=== PATIENT | male | born 1965 | race Two or more races ===

== ENCOUNTER 2024-02-20 16:04 | Inpatient (IN) | payer OTHER ==
[2024-02-20] MEDS ORDERED: NITROGLYCERIN SUBLINGUAL 1/150 0.4 MG TAB ONE ×2 (16:13→16:17)
[2024-02-20] MEDS ORDERED: NITROGLYCERIN 2% OINTMENT - 1GM PACKET TD ONE (16:13)
[2024-02-20] MEDS ORDERED: FUROSEMIDE 40 MG/4 ML INJECTABLE VIAL ONE (16:15)
[2024-02-20] MEDS ORDERED: NITROGLYCERIN 25MG/D5W 250ML 25 MG/250 ML ML IVPB ONE (16:24)
[2024-02-20] MEDS: NITROGLYCERIN SUBLINGUAL 1/150 0.4 MG TAB SL ONE ×3 (16:30→20:41)
[2024-02-20 16:48] LABS: BASO % 0.7 % (0-2.0); EOS % 1.5 % (0-4.5); HEMATOCRIT 44.8 % (35.4-49); HEMOGLOBIN 14.6 GM/dL (11.7-16.9); LYMPH % 27.9 % (8-40); MCH 27.6 pg (25.7-33.7); MCHC 32.5 g/dl (32.0-35.9); MEAN CELL VOLUME 84.9 fl (80-96); MEAN PLT VOLUME 7.6 fl (7.5-11.1); MONO % 7.8 % (3.8-10.2); NEUT % 62.1 % (42.8-82.8); PLATELET COUNT 345 10^3/uL (134-434); RBC 5.28 M/mm3 (4.00-5.60); RDW 16.1 % (11.9-15.9); WHITE BLOOD COUNT 9.8 K/mm3 (4.0-10.0)
[2024-02-20 16:49] LABS: VENOUS BASE EXCESS -0.4 mmol/L (-2-2); VENOUS O2 SATURATION 73.7 % (70-80); VENOUS PCO2 66.1 mmHg (38-52); VENOUS PH 7.254 (7.310-7.410)
[2024-02-20 16:54] LABS: INR 1.07 (0.83-1.09); PROTHROMBIN TIME (PATIENT) 12.3 SEC (9.7-13.0)
[2024-02-20 16:57] LABS: ACTIVATED PTT 33.5 SECONDS (25.2-36.5)
[2024-02-20 17:06] LABS: CHLORIDE 106 mmol/L (98-107); SODIUM 138 mmol/L (136-145)
[2024-02-20 17:08] LABS: ALBUMIN 3.9 g/dl (3.4-5.0); BLOOD UREA NITROGEN 15.2 mg/dL (7-18); CALCIUM 9.6 mg/dL (8.5-10.1); CO2 28 mmol/L (21-32); GLUCOSE,RANDOM 125 mg/dL (74-106); MAGNESIUM 2.2 mg/dL (1.8-2.4)
[2024-02-20 17:11] LABS: SGOT/AST 104 U/L (15-37)
[2024-02-20 17:12] LABS: PHOSPHOROUS 3.9 mg/dL (2.5-4.9)
[2024-02-20 17:13] LABS: BILIRUBIN,TOTAL 0.9 mg/dL (0.2-1); TOT PROT 8.8 g/dl (6.4-8.2)
[2024-02-20 17:14] LABS: ALK PHOS 80 U/L (45-117)
[2024-02-20 17:16] LABS: N-TERMINAL BNP 1267.1 pg/ml (5-125)
[2024-02-20 17:19] LABS: ANION GAP 4 mmol/L (4-13); LACTIC ACID 2.6 mmol/L (0.4-2.0); POTASSIUM 6.7 mmol/L (3.5-5.1); SGPT/ALT 54 U/L (13-61)
[2024-02-20] MEDS: ALBUTEROL SO4 2.5/IPRATROPIUM 0.5 INH SOL 3 ML VIAL.NEB. NEB SCH (17:49)
[2024-02-20] MEDS: NITROGLYCERIN 25MG/D5W 250ML 25 MG/250 ML ML IVPB SCH (17:49)
[2024-02-20 18:56] LABS: ARTERIAL BLD GAS O2 SATURATION 97.3 % (95-98); ARTERIAL BLOOD GAS BASE EXCESS 1.8 mmol/L (-2-2); ARTERIAL BLOOD GAS PO2 100.6 mmHg (80-100); ARTERIAL BLOOD GAS pH 7.362 (7.350-7.450)
[2024-02-20 18:57] LABS: ALLENS TEST POSITIVE
[2024-02-20 18:57] LABS: POTASSIUM 3.3 mmol/L (3.5-5.1)
[2024-02-20 18:58] LABS: VENT MODE S/T; VENT RATE 12
[2024-02-20 18:59] LABS: CALCIUM 9.1 mg/dL (8.5-10.1)
[2024-02-20 19:00] LABS: BLOOD UREA NITROGEN 15.3 mg/dL (7-18)
[2024-02-20 19:04] LABS: CREATININE 0.8 mg/dL (0.55-1.3)
[2024-02-20] MEDS ORDERED: ASPIRIN 81 MG CHEWABLE TABLETS ONE (20:28)
[2024-02-20] MEDS ORDERED: CEFTRIAXONE 1 GM/50 ML BAG ONE (20:29)
[2024-02-20] MEDS: FUROSEMIDE 40 MG/4 ML INJECTABLE VIAL IVPUSH ONE (20:40)
[2024-02-20] MEDS: CEFTRIAXONE 1,000 MG in DEXTROSE 5%-WATER - 50 ML IVPB ONE (20:40)
[2024-02-20] MEDS: ASPIRIN 81 MG CHEWABLE TABLETS PO ONE (20:40)
[2024-02-20] MEDS ORDERED: AZITHROMYCIN IVPB 500 MG/250 ML BAG IVPB ONE (21:22)
[2024-02-20] MEDS: AZITHROMYCIN IVPB 500 MG in DEXTROSE 5%-WATER - 250 ML IVPB ONE (21:41)
[2024-02-20] MEDS ORDERED: POTASSIUM CHLORIDE ORAL LIQUID 20 MEQ/15 ML ONE (22:38)
[2024-02-20] MEDS: POTASSIUM CHLORIDE ORAL LIQUID 20 MEQ/15 ML PO ONE (22:59)
[2024-02-21] MEDS: FUROSEMIDE 40 MG/4 ML INJECTABLE VIAL IVPUSH SCH (02:06)
[2024-02-21] MEDS ORDERED: FUROSEMIDE 40 MG/4 ML INJECTABLE VIAL ONE ×3 (02:09→18:37)
[2024-02-21] MEDS: metoPROLOL SUCCINATE 25 MG TAB.SR.24H (FP) PO ONE (04:35)
[2024-02-21] MEDS: ASPIRIN 81 MG CHEWABLE TABLETS PO ONE (04:37)
[2024-02-21 06:59] LABS: HEMATOCRIT 35.9 % (35.4-49); HEMOGLOBIN 11.6 GM/dL (11.7-16.9); MCH 27.3 pg (25.7-33.7); MCHC 32.2 g/dl (32.0-35.9); MEAN CELL VOLUME 84.6 fl (80-96); MEAN PLT VOLUME 7.1 fl (7.5-11.1); PLATELET COUNT 268 10^3/uL (134-434); RBC 4.25 M/mm3 (4.00-5.60); RDW 15.4 % (11.9-15.9); WHITE BLOOD COUNT 6.5 K/mm3 (4.0-10.0)
[2024-02-21 07:22] LABS: POTASSIUM 3.5 mmol/L (3.5-5.1)
[2024-02-21 07:30] LABS: ALBUMIN 3.5 g/dl (3.4-5.0); BLOOD UREA NITROGEN 14.4 mg/dL (7-18); CALCIUM 8.9 mg/dL (8.5-10.1); MAGNESIUM 1.8 mg/dL (1.8-2.4)
[2024-02-21 07:33] LABS: CREATININE 0.8 mg/dL (0.55-1.3); PHOSPHOROUS 3.7 mg/dL (2.5-4.9)
[2024-02-21 07:34] LABS: BILIRUBIN,TOTAL 1.3 mg/dL (0.2-1)
[2024-02-21] MEDS: POTASSIUM CHLORIDE ORAL LIQUID 20 MEQ/15 ML PO ONE (08:55)
[2024-02-21] MEDS ORDERED: POTASSIUM CHLORIDE TABS 20 MEQ TABLET.ER (FP) PO ONE (09:02)
[2024-02-21] MEDS ORDERED: ENOXAPARIN NA (PORCINE) 40 MG/0.4 ML DISP.SYRIN SQ ONE (10:23)
[2024-02-21] MEDS ORDERED: ASPIRIN COATED 81 MG TABLET.EC ONE (10:23)
[2024-02-21] MEDS: ENOXAPARIN NA (PORCINE) 40 MG/0.4 ML DISP.SYRIN SQ SCH (10:33)
[2024-02-21] MEDS: ASPIRIN COATED 81 MG TABLET.EC PO SCH (10:33)
[2024-02-21 11:46] LABS: BILIRUBIN,DIRECT 0.3 mg/dL (0.0-0.2)
[2024-02-21] MEDS: ALBUTEROL SO4 0.083% IH SOL 2.5 MG/3 ML VIAL.NEB. NEB SCH (18:41)
[2024-02-21] MEDS ORDERED: metoPROLOL SUCCINATE 25 MG TAB.SR.24H (FP) PO SCH (22:00)
[2024-02-21] MEDS: metoPROLOL SUCCINATE 25 MG TAB.SR.24H (FP) PO SCH (23:49)
[2024-02-22] MEDS: FLUTICASONE/SALMETEROL (WIXELA) 100 MCG/50 MCG DISKUS IH SCH (00:33)
[2024-02-22] MEDS ORDERED: FUROSEMIDE 40 MG/4 ML INJECTABLE VIAL ONE (01:49)
[2024-02-22 07:18] LABS: BASO % 0.7 % (0-2.0); EOS % 3.5 % (0-4.5); HEMATOCRIT 35.8 % (35.4-49); HEMOGLOBIN 11.8 GM/dL (11.7-16.9); LYMPH % 17.9 % (8-40); MCH 27.9 pg (25.7-33.7); MCHC 33.1 g/dl (32.0-35.9); MEAN CELL VOLUME 84.4 fl (80-96); MONO % 10.3 % (3.8-10.2); NEUT % 67.6 % (42.8-82.8); PLATELET COUNT 248 10^3/uL (134-434); RBC 4.24 M/mm3 (4.00-5.60); RDW 15.1 % (11.9-15.9); WHITE BLOOD COUNT 5.2 K/mm3 (4.0-10.0)
[2024-02-22 07:38] LABS: POTASSIUM 3.5 mmol/L (3.5-5.1)
[2024-02-22 07:40] LABS: CALCIUM 8.8 mg/dL (8.5-10.1)
[2024-02-22 07:41] LABS: ALBUMIN 3.4 g/dl (3.4-5.0); BLOOD UREA NITROGEN 15.8 mg/dL (7-18); MAGNESIUM 1.8 mg/dL (1.8-2.4)
[2024-02-22 07:44] LABS: PHOSPHOROUS 4.3 mg/dL (2.5-4.9)
[2024-02-22 07:45] LABS: BILIRUBIN,TOTAL 0.9 mg/dL (0.2-1); TOT PROT 6.7 g/dl (6.4-8.2)
[2024-02-22 12:38] VITALS: BMI 38.5
[2024-02-22] MEDS: EMPAGLIFLOZIN (JARDIANCE) 10 MG TABLET PO SCH (17:11)
[2024-02-22] MEDS: SACUBITRIL/VALSARTAN 24 MG-26 MG TABLET PO SCH (21:58)
[2024-02-23 07:34] LABS: HEMATOCRIT 37.7 % (35.4-49); HEMOGLOBIN 12.4 GM/dL (11.7-16.9); MCH 27.6 pg (25.7-33.7); MCHC 32.8 g/dl (32.0-35.9); MEAN CELL VOLUME 84.1 fl (80-96); MEAN PLT VOLUME 7.2 fl (7.5-11.1); PLATELET COUNT 285 10^3/uL (134-434); RBC 4.48 M/mm3 (4.00-5.60); RDW 15.2 % (11.9-15.9); WHITE BLOOD COUNT 4.9 K/mm3 (4.0-10.0)
[2024-02-23 07:54] LABS: POTASSIUM 3.2 mmol/L (3.5-5.1)
[2024-02-23 08:12] LABS: ALBUMIN 3.5 g/dl (3.4-5.0); CALCIUM 9.2 mg/dL (8.5-10.1)
[2024-02-23 08:13] LABS: BLOOD UREA NITROGEN 16.1 mg/dL (7-18)
[2024-02-23 08:15] LABS: CREATININE 0.9 mg/dL (0.55-1.3)
[2024-02-23 08:19] LABS: BILIRUBIN,TOTAL 0.6 mg/dL (0.2-1)
[2024-02-23] MEDS: FUROSEMIDE 40 MG/4 ML INJECTABLE VIAL IVPUSH SCH (09:42)
[2024-02-23] MEDS: POTASSIUM CHLORIDE ORAL LIQUID 20 MEQ/15 ML PO ONE (09:42)
[2024-02-23 15:46] VITALS: BP 118/64; RESP 16; TEMP 98.2
[2024-02-23 15:48] VITALS: PULSE 45
== END 2024-02-23 18:56 | disposition home or self-care (01) | DRG 194 ==
LOC: JER 16:04 → JERBED 19:21 → J4W 02-22 09:05
PROVIDERS: ADMIT Internal Medicine; ATTEND Internal Medicine
DX: I11.0 Hypertensive heart disease with heart failure (principal); J96.01 Acute respiratory failure with hypoxia; J96.02 Acute respiratory failure with hypercapnia; J44.1 Chronic obstructive pulmonary disease with (acute) exacerbation; I16.0 Hypertensive urgency; R79.89 Other specified abnormal findings of blood chemistry; I50.23 Acute on chronic systolic (congestive) heart failure; I16.1 Hypertensive emergency; E66.9 Obesity, unspecified; Z68.38 Body mass index [BMI] 38.0-38.9, adult
CPT/HCPCS: 36415; 36600; 71045-TC-FY; 71250-TC; 76604; 80048; 80053; 82248; 82803; 82962; 83605; 83735; 83880; 84100; 84484; 85025; 85027; 85610; 85730; 87040; 87899; 93005; 93010; 93306-TC; 93308; 94660; 94761; 97116-GP; 97161-GP; 99285-25